=== PATIENT | male | born 1980 | race Caucasian/White ===

== ENCOUNTER 2020-05-28 10:54 | Emergency (ER) | payer OTHER, SELFPAY ==
--- NOTE | ~2020-05-28 | XR_ITS ---
EXAMINATION: XR chest 2V DATE: 05/28/2020 11:28 INDICATION: Left mid back pain with inspiration TECHNIQUE: PA and lateral views of the chest were obtained. COMPARISON: None FINDINGS: Focal wedge-shaped airspace opacity at the left apex. Remainder of the lungs are clear. No pulmonary edema, pleural effusion or pneumothorax. The cardiomediastinal silhouette is normal. Minimal thoracic spondylosis. IMPRESSION: 1. Peripheral wedge-shaped opacity left apex which in the acute setting could represent pneumonia, at electasis or pulmonary infarct and scarring or malignancy if chronic. Correlate clinically and recomm end radiographic follow-up to resolution. Reviewed, dictated and finalized at location B. IMPRESSION: 1. Peripheral wedge-shaped opacity left apex which in the acute setting could r epresent pneumonia, atelectasis or pulmonary infarct and scarring or malignancy if chronic. Correlate clinically and recommend radiographic follow-up to resol ution.
[2020-05-28 11:00] VITALS: BP 129/63; PULSE 102; RESP 18; TEMP 36.5; O2SAT 100
--- NOTE | 2020-05-28 11:15 | ED_ITS ---
HPI - SOB/Dyspnea General Chief Complaint: Upper Respiratory Infection Stated Complaint: back pain/difficulty breathing Time Seen by Provider: 05/28/20 11:15 Source: patient and RN notes reviewed Mode of arrival: ambulatory Limitations: no limitations Related Data Home Medications Medication Instructions Recorded Confirmed No Home Medications 05/28/20 05/28/20 Allergies Allergy/AdvReac Type Severity Reaction Status Date / Time No Known Allergies Allergy Unverified 05/28/20 11:17 Review of Systems Review of Systems: All systems reviewed & are unremarkable except as noted in HPI and below PMFSH Comments At time of signature, agree with nursing past medical, surgical, social and family history. There is no relevant family history pertinent to the presenting complaint Course Course Emergency Course: Patient is aware of diagnosis, understands and agrees to treatment plan. Anticipatory guidance given. Patient agrees to follow-up as di rected and is aware of reasons to seek care at the emergency department. Portions of this record may have been created with voice recognition software Vital Signs Vital signs: Vital Signs Temperature 97.7 F 05/28/20 11:00 Pulse Rate 102 H 05/28/20 11:00 Respiratory Rate 18 05/28/20 11:00 Blood Pressure 129/63 05/28/20 11:00 Pulse Oximetry 100 05/28/20 11:00 Temperature 97.7 F 05/28/20 11:00 Pulse Rate 102 H 05/28/20 11:00 Respiratory Rate 18 05/28/20 11:00 Blood Pressure 129/63 05/28/20 11:00 Pulse Oximetry 100 05/28/20 11:00 Reviewed. Critical Care Time Critical Care Time Critical Care Time: No Discharge Plan Discharge Prescriptions: No Action No Home Medications RF: 0
--- NOTE | 2020-05-28 11:21 | ED.GENADULT ---
HPI - General Adult General Chief complaint: Upper Respiratory Infection Stated complaint: back pain/difficulty breathing Time Seen by Provider: 05/28/20 11:15 Source: patient and RN notes reviewed Mode of arrival: ambulatory Limitations: no limitations History of Present Illness HPI narrative: 39-year-old male presents with concern for left upper back pain that radiates through the left chest. He denies injury or trauma. He reports pain exacerbated with deep breathing, coughing. Reports pain exacerbated with some movements such as bending. MD complaint: Back pain Related Data Allergies Allergy/AdvReac Type Severity Reaction Status Date / Time No Known Allergies Allergy Unverified 05/28/20 11:17 Review of Systems Review of Systems: Narrative: CONSTITUTIONAL: Denies malaise, chills, sweats, or fever. EYES: Denies visual changes, redness, or discharge. ENT: Denies rhinorrhea, congestion, sinus pain, otalgia or sore throat. CARDIOVASCULAR: Denies chest pain, palpitations, or edema. RESPIRATORY: Denies cough. Reports dyspnea. GASTROINTESTINAL: Denies abdominal pain, nausea, vomiting, diarrhea SKIN: Denies bruising, redness MUSCULOSKELETAL: Reports left upper back pain. Denies myalgia. NEUROLOGIC: Denies numbness, weakness. All systems reviewed & are unremarkable except as noted in HPI and below PMFSH Comments At time of signature, agree with nursing past medical, surgical, social and family history. There is no relevant family history pertinent to the presenting complaint Exam Narrative: Exam Narrative: GENERAL: Well-appearing, well-nourished, and in no acute distress. HEAD: Normocephalic, atraumatic. EYES: PERRLA, conjunctivae clear ENT: Mucous membranes moist. NECK: Supple. CHEST: No respiratory distress. Clear to auscultation, diminished breath sounds. No bony deformities, no asymmetry. Speaks in full sentences. HEART: Regular rate and rhythm. No murmur heard. ABDOMEN: Soft, nontender, nondistended, normal active bowel sounds, no palpable masses. MUSCULOSKELETAL: Normal range of motion and strength in all extremities; 5/5 strength with hip flexion and extension, dorsiflexion and extension, knee flexion and extension, plantar flexion and extension. Normal sensation in dermatomal distributions with sensitivity to light touch and pain. No midline back tenderness to palpation. No paraspinal tenderness. Transfers from lying to sitting to standing. SKIN: Warm, dry, no rash. NEURO: Alert and oriented x3. No focal deficits. Cranial nerves II through XII grossly intact PSYCH: Normal mood and affect Course Course Emergency Course: Patient is aware of diagnosis, understands and agrees to treatment plan. Anticipatory guidance given. Patient agrees to follow-up as directed and is aware of reasons to seek care at the emergency department. Portions of this record may have been created with voice recognition software Vital Signs Vital signs: Vital Signs Temperature 97.7 F 05/28/20 11:00 Pulse Rate 102 H 05/28/20 11:00 Respiratory Rate 18 05/28/20 11:00 Blood Pressure 129/63 05/28/20 11:00 Pulse Oximetry 100 05/28/20 11:00 Temperature 97.7 F 05/28/20 11:00 Pulse Rate 102 H 05/28/20 11:00 Respiratory Rate 18 05/28/20 11:00 Blood Pressure 129/63 05/28/20 11:00 Pulse Oximetry 100 05/28/20 11:00 Reviewed. Medical Decision Making MDM Narrative Medical decision making narrative: No risk factors or findings concerning for epidural abscess, diskitis, vertebral osteomyelitis, cord compression, cauda equina, vertebral fracture or bone malignancy, AAA, or pyelonephritis. Patient instructed to consider further imaging and workup through their primary care physician as an outpatient if symptoms persist. Differential Diagnosis Differential Diagnosis: Back injury, pneumonia, pleural effusion, shoulder pain, shoulder injury, pneumothorax Vital Signs Vital Signs: Vital Signs Temperature 97.7 F
== END 2020-05-28 12:00 | disposition home or self-care (01) ==
PROVIDERS: Emergency Provider Nurse Practitioner
DX: R91.8 Other nonspecific abnormal finding of lung field (principal)
CPT/HCPCS: 71046; 99213; G0463

== ENCOUNTER 2021-06-01 16:07 | Emergency (ER) | payer SELFPAY ==
--- NOTE | 2021-06-01 16:12 | ED.MALEGU ---
HPI - Male Genitourinary General Chief complaint: Urogenital-Male Stated complaint: kindney pain Time Seen by Provider: 06/01/21 16:12 Source: patient and RN notes reviewed History of Present Illness HPI Narrative: Patient is a 40-year-old female who presents the urgent care with complaints of left flank pain. Patient states that it started on Sunday and it resolved until Sunday evening. Patient states that he then started having extreme left flank pain radiating to the left groin. Patient also has urinary frequency and urgency. Patient did have an episode of nausea and vomiting over the weekend. Denies of any fevers. Currently denies of any abdominal pain, nausea, vomiting. Patient has not taken anything [id number] for his symptoms. Patient states that today he started to have blood in the urine. No other acute complaints. No acute distress noted. Patient read the plan of care. Some parts of this dictation were generated by voice recognition software and may contain typographical and/or grammatical inaccuracies. Related Data Home Medications Medication Instructions Recorded Confirmed No Home Medications 06/01/21 06/01/21 Allergies Allergy/AdvReac Type Severity Reaction Status Date / Time No Known Allergies Allergy Verified 06/01/21 16:36 Review of Systems Review of Systems: CONSTITUTIONAL: Denies fever, chills, or sweats. EYES: Denies visual changes, redness, or discharge. ENT: Denies rhinorrhea, congestion, sore throat, or otalgia. CARDIOVASCULAR: Denies chest pain, palpitations, or edema. RESPIRATORY: Denies cough or dyspnea. GASTROINTESTINAL: Denies abdominal pain, nausea, vomiting, or diarrhea. GENITOURINARY: Reports of urinary frequency, urgency, hematuria SKIN: Denies rash or itching. MUSCULOSKELETAL: Reports of left flank pain NEUROLOGIC: Denies headache, numbness, or weakness. All other systems reviewed are negative, except as documented in HPI. PMFSH Comments At the time of my signature, I reviewed and agree with the nursing past medical, surgical, social, and family history. There is no relevant family history pertinent to the patient complaint. Exam Narrative: GENERAL: This is a well-nourished, well-developed patient, in no apparent distress. HEAD: normocephalic, atraumatic. EYES: PERRL. Sclera clear/white. Vision is grossly intact. EARS: External ears normal NOSE: External nose normal with no obvious nasal discharge, nares without redness, no rhinorrhea. THROAT: Mucous membranes moist NECK: Neck supple CARDIOVASCULAR: Regular rate and rhythm without murmurs, gallops, or rubs. RESPIRATORY: Clear to auscultation. Breath sounds equal bilaterally. No wheezes, rales, or rhonchi. GASTROINTESTINAL: Abdomen soft, moderate suprapubic tenderness, nondistended. Bowel sounds are active. SKIN: warm, intact with no suspicious lesions or rash, good texture and turgor. NEURO: awake, alert, and oriented to person, place and time. There were no obvious focal neurologic abnormalities. EXTREMITIES: No clubbing, cyanosis, or edema. BACK: Positive left CVA tenderness Course Vital Signs Vital signs: Vital Signs Temperature 98.7 F 06/01/21 16:20 Pulse Rate 73 06/01/21 16:20 Respiratory Rate 14 06/01/21 16:20 Blood Pressure 115/61 06/01/21 16:20 Pulse Oximetry 98 06/01/21 16:20 Temperature 98.7 F 06/01/21 16:20 Pulse Rate 73 06/01/21 16:20 Respiratory Rate 14 06/01/21 16:20 Blood Pressure 115/61 06/01/21 16:20 Pulse Oximetry 98 06/01/21 16:20 Reviewed Transfer Transfered to: [facility] Transportation: Other (Private car) Transfer rationale: Further eval and treatment for possible kidney stone Accepting physician: Dr. Rubalcava MDM - Male Genitourinary MDM Narrative Medical decision making narrative: Reviewed lab results with the patient. He is aware that there is no indicative infection of the urine however there is blood in the urine. Considering patient'
[2021-06-01 16:20] VITALS: BP 115/61; PULSE 73; RESP 14; TEMP 37.1; O2SAT 98
== END 2021-06-01 17:08 | disposition short-term general hospital (02) ==
PROVIDERS: Emergency Provider Nurse Practitioner Family
DX: R10.9 Unspecified abdominal pain (principal); R31.9 Hematuria, unspecified
CPT/HCPCS: 81003; 99212; G0463

== ENCOUNTER 2022-04-02 16:15 | Emergency (ER) | payer OTHER, SELFPAY ==
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
[2022-04-02 16:30] VITALS: BP 110/58; PULSE 84; RESP 16; TEMP 37.7; O2SAT 99
[2022-04-02 16:41] VITALS: BP 110/58; PULSE 84; RESP 16; TEMP 37.7; O2SAT 99
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
[2022-04-02] MEDS: KETOROLAC (*BKC) 60 MG/2 ML VIAL IM (18:22)
== END 2022-04-02 18:42 | disposition home or self-care (01) ==
PROVIDERS: Emergency Provider Nurse Practitioner Family
DX: S92.902A Unspecified fracture of left foot, initial encounter for closed fracture (principal); M25.571 Pain in right ankle and joints of right foot; M25.512 Pain in left shoulder; R07.81 Pleurodynia; M25.522 Pain in left elbow; V29.9XXA Motorcycle rider (driver) (passenger) injured in unspecified traffic accident, initial encounter; F17.210 Nicotine dependence, cigarettes, uncomplicated
CPT/HCPCS: 29515; 71100; 73030; 73080; 73630; 96372; 99214; G0463; J1885

== ENCOUNTER 2022-05-18 16:34 | Emergency (ER) | payer OTHER, SELFPAY ==
--- NOTE | 2022-05-18 16:38 | ED.DENTAL ---
HPI - Dental/Oral General Chief complaint: Dental/Oral Stated complaint: Toothache Time Seen by Provider: 05/18/22 16:38 Source: patient Mode of arrival: ambulatory Limitations: no limitations History of Present Illness HPI Narrative: Mr. Foley is a 41-year-old male patient presenting to the clinic today with complaints of possible dental infection. He reports that he first noticed this 2 days ago. He is concerned that he may have a dental abscess. He denies any fever or chills Related Data Allergies Allergy/AdvReac Type Severity Reaction Status Date / Time lansoprazole [From Prevacid] Allergy Mild Rash Verified 04/19/22 08:58 Review of Systems Review of Systems: Pertinent positives per HPI. Patient denies any fever, chills, rash, headache, visual changes, dizziness, cough, runny nose, sore throat, shortness of breath, chest pain, palpitations, nausea, vomiting, diarrhea, constipation, abdominal pain, or any urinary issues. PMFSH Past Medical History Medical History Anxiety Depression Surgical History Surgical History History of appendectomy Family History Family History Father Asthma Hypertension Mother Diabetes mellitus Sibling Leukemia Social History Social History Smoking packs per day: 1 Smoking cigarettes per day: 20.0 Years smoked: 20 Smoking pack-years: 20.00 Smoking status: Current every day smoker Tobacco type: cigarettes Alcohol intake: never Substance use: never Additional occupation/education comments: [employer] Comments At the time of my signature, I reviewed and agree with the nursing past medical, surgical, social, and family history. There is no relevant family history pertinent to the patient complaint. Exam Narrative: General: Well-developed, well nourished, in no apparent distress Head: Normocephalic, atraumatic Eyes: Pupils equally round and reactive to light bilaterally, EOM intact, sclera and conjunctive clear, no discharge, lids normal Ears: TMs intact and clear, ear canals clear, no drainage, grossly hearing normal. Nose: Nares patent, no discharge, no inflammation, no sinus tenderness. Mouth: Oropharynx without lesions or masses, very poor dentition, MMM. Dental abscess with very mild fluctuance to the right upper gum with pain to tooth number #5. Mild swelling and pain to palpation over the right maxilla just above this tooth Neck: Supple, trachea midline, no enlargement of anterior or posterior cervical nodes, no thyroid masses or goiter palpable. Cardio: Regular rate and rhythm, s1 and s2 normal, no murmur appreciated. Resp: Clear to auscultation bilaterally anteriorly and posteriorly, no rhonchi, rales, wheezing or rubs Course Course Emergency Course: Portions of this record may have been created with voice recognition software. Level of Care: Express Care Visit Vital Signs Vital signs: Vital signs reviewed MDM - Dental/Oral MDM Narrative Medical decision making narrative: At the time of visit patient is resting comfortably on the exam table. I suspect patient has a dental infection/abscess. There is nothing to be drained at this time. I will put in a prescription for his Augmentin. He is to follow-up with his dentist as soon as possible. Supportive measures were discussed and patient voiced understanding of discharge instructions and agrees to treatment plan. Differential Diagnosis Differential diagnosis: Likely gingival abscess, dental caries, toothache, dental abscess and fracture of tooth Discharge Plan Discharge Clinical Impression: Abscess, dental Patient Disposition: Home, Self-Care Condition: Stable Instructions: Antibiotic Form, Dental Abscess (ED) Dato
[2022-05-18 16:42] VITALS: BP 107/55; PULSE 80; RESP 14; TEMP 37.2; O2SAT 98
== END 2022-05-18 17:03 | disposition home or self-care (01) ==
PROVIDERS: Emergency Provider Nurse Practitioner Family
DX: K04.7 Periapical abscess without sinus (principal); F17.210 Nicotine dependence, cigarettes, uncomplicated
CPT/HCPCS: 99213; G0463

== ENCOUNTER 2022-07-18 15:02 | Emergency (ER) | payer OTHER, SELFPAY ==
[2022-07-18 15:30] VITALS: BP 105/64; PULSE 86; RESP 18; TEMP 36.5; O2SAT 100
--- NOTE | 2022-07-18 16:25 | ED.DENTAL ---
HPI - Dental/Oral General Chief complaint: Dental/Oral Stated complaint: Mouth Sore Time Seen by Provider: 07/18/22 16:25 Mode of arrival: ambulatory Limitations: no limitations History of Present Illness HPI Narrative: 41-year-old male presents concern for dental pain and facial swelling. Reports pain and swelling in the roof of his mouth and swelling to the right side of his face. Reports being treated for a dental abscess in April that resolved. He reports he does not have a dentist. MD Complaint: tooth pain Related Data Allergies Allergy/AdvReac Type Severity Reaction Status Date / Time lansoprazole [From Prevacid] Allergy Mild Rash Verified 07/18/22 15:35 Review of Systems Review of Systems: CONSTITUTIONAL: Denies malaise, chills, sweats, or fever. EYES: Denies visual changes ENT: Denies rhinorrhea, congestion, sinus pain, otalgia or sore throat. Reports right upper dental pain, pain in the roof of the mouth, right cheek swelling CARDIOVASCULAR: Denies chest pain, palpitations RESPIRATORY: Denies cough or dyspnea. SKIN: Denies rash or itching. MUSCULOSKELETAL: Denies myalgia. NEUROLOGIC: Denies numbness, weakness, or headache. All systems reviewed & are unremarkable except as noted in HPI and below PMFSH Past Medical History Medical History Anxiety Depression Surgical History Surgical History History of appendectomy Family History Family History Father Asthma Hypertension Mother Diabetes mellitus Sibling Leukemia Social History Social History Smoking packs per day: 1 Smoking cigarettes per day: 20.0 Years smoked: 20 Smoking pack-years: 20.00 Smoking status: Current every day smoker Tobacco type: cigarettes Alcohol intake: never Substance use: never Additional occupation/education comments: [employer] Comments At time of signature, agree with nursing past medical, surgical, social and family history. There is no relevant family history pertinent to the presenting complaint Exam Narrative: GENERAL: Well-appearing, well-nourished, and in no acute distress. HEAD: Normocephalic, atraumatic. EYES: PERRLA, sclera clear ENT: Nares clear, turbinates pink, no rhinorrhea or epistaxis. Mucous membranes moist. TM pearly ribera with sharp light reflex bilaterally; no tragal tenderness. Oropharynx without erythema or lesions. Tonsils not enlarged and without exudate. Missing teeth, broken teeth, caries, small fluctuant abscess noted to roof of the mouth, right cheek swelling noted NECK: Supple. No lymphadenopathy. CHEST: No respiratory distress. Speaks in full sentences. HEART: Regular rate and rhythm. SKIN: Warm, dry, no visible rash. NEURO: Alert and oriented x3. PSYCH: Normal mood and affect Course Course Emergency Course: Discussed with patient the importance of following up with a dentist for further evaluation of his infection, given the repetitive nature and the abscess on the roof of the mouth. Patient is aware of diagnosis, understands and agrees to treatment plan. Anticipatory guidance given. Patient agrees to follow-up as directed and is aware of reasons to seek care at the emergency department. Portions of this record may have been created with voice recognition software Level of Care: Express Care Visit Vital Signs Vital signs: Vital Signs Temperature 97.7 F 07/18/22 15:30 Pulse Rate 86 07/18/22 15:30 Respiratory Rate 18 07/18/22 15:30 Blood Pressure 105/64 07/18/22 15:30 Pulse Oximetry 100 07/18/22 15:30 Oxygen Delivery Room Air 07/18/22 15:30 Temperature 97.7 F 07/18/22 15:30 Pulse Rate 86 07/18/22 15:30 Respiratory Rate 18 07/18/22 15:30 Blood Pressure 105/64 07/18/22 15:30 Pulse Oximetry
== END 2022-07-18 16:42 | disposition home or self-care (01) ==
PROVIDERS: Emergency Provider Nurse Practitioner
DX: K04.7 Periapical abscess without sinus (principal); F32.9 Major depressive disorder, single episode, unspecified; F41.9 Anxiety disorder, unspecified; F17.210 Nicotine dependence, cigarettes, uncomplicated
CPT/HCPCS: 41800; 99213; G0463

== ENCOUNTER 2022-11-29 12:01 | Emergency (ER) | payer OTHER, SELFPAY ==
--- NOTE | ~2022-11-29 | XR_ITS ---
EXAMINATION: XR foot RT min 3V DATE: 11/29/2022 12:31 INDICATION: Right foot injury and pain. TECHNIQUE: 4 views of right foot were obtained. COMPARISON: Right foot radiographs 04/02/2022 FINDINGS: There is mild hallux valgus. No fracture. There is mild osteoarthritis of first metatarsoph alangeal joint. There is an enthesophyte at posterior aspect of calcaneal tuberosity. IMPRESSION: 1. Mild hallux valgus. 2. Mild osteoarthritis of first metatarsophalangeal joint. Reviewed, dictated and finalized at location A.
[2022-11-29 12:07] VITALS: BP 104/55; PULSE 70; RESP 18; TEMP 35.5; O2SAT 99
--- NOTE | 2022-11-29 12:15 | ED.GENADULT ---
HPI - General Adult General Chief complaint: Extremity Injury, Lower Stated complaint: pain in right foot Source: patient and RN notes reviewed History of Present Illness HPI narrative: 42-year-old male presents to urgent care with complaints of right midfoot pain. States 3 weeks ago he donkey-kicked? a tire and his pain started about 2 hours later. Pt was seen at an ER and given Bactrim and steroids for possible infection due to swelling in the foot. Pt had a negative xray at the time. Pt was seen at his PCP's office and had blood work obtained with negative findings of gout and anything else concerning. Pt states the pain has been persistent. Denies any fevers, chills, numbness, or tingling. Pt has been taking ibuprofen with minimal relief. Related Data Home Medications Medication Instructions Recorded Confirmed No Home Medications 11/29/22 11/29/22 Allergies Allergy/AdvReac Type Severity Reaction Status Date / Time lansoprazole [From Prevacid] Allergy Mild Rash Verified 11/29/22 12:23 Review of Systems Review of Systems: Pertinent positives and pertinent negatives per HPI. [facility], [facility] Past Medical History Medical History Anxiety Depression Surgical History Surgical History History of appendectomy Family History Family History Father Asthma Hypertension Mother Diabetes mellitus Sibling Leukemia Social History Social History Smoking packs per day: 1 Smoking cigarettes per day: 20.0 Years smoked: 20 Smoking pack-years: 20.00 Smoking status: Current every day smoker Tobacco type: cigarettes Alcohol intake: never Substance use: never Living arrangements: with family Occupation/Education: occupation Additional occupation/education comments: [employer] Comments At the time of my signature, I reviewed and agree with the nursing past medical, surgical, social, and family history. There is no relevant family history pertinent to the patient complaint. Exam Narrative: GENERAL: This is a well-nourished, well-developed patient, in no apparent distress. HEAD: normocephalic, atraumatic. EYES: Sclera clear/white. Vision is grossly intact. EARS: External ears normal, auditory canals clear and without drainage. Hearing grossly intact. NOSE: External nose normal with no obvious nasal discharge, nares without redness, no rhinorrhea. THROAT: Mucous membranes moist, posterior pharynx clear. NECK: Neck supple, non-tender without lymphadenopathy, masses or thyromegaly. CARDIOVASCULAR: Regular rate RESPIRATORY: No respiratory distress SKIN: warm, intact with no suspicious lesions or rash, good texture and turgor. NEURO: awake, alert, and oriented to person, place and time. There were no obvious focal neurologic abnormalities. EXTREMITIES: Right medial foot tenderness. Course Course Level of Care: Express Care Visit Vital Signs Vital signs: Vital Signs Temperature 96 F L 11/29/22 12:07 Pulse Rate 70 11/29/22 12:07 Respiratory Rate 18 11/29/22 12:07 Blood Pressure 104/55 L 11/29/22 12:07 Pulse Oximetry 99 11/29/22 12:07 Oxygen Delivery Room Air 11/29/22 12:07 Temperature 96 F L 11/29/22 12:07 Pulse Rate 70 11/29/22 12:07 Respiratory Rate 18 11/29/22 12:07 Blood Pressure 104/55 L 11/29/22 12:07 Pulse Oximetry 99 11/29/22 12:07 Oxygen Delivery Room Air 11/29/22 12:07 Reviewed Medical Decision Making MDM Narrative Medical decision making narrative: Follow up with podiatry. Dr. Con[place]pc[place] in [place]. Dr[place] Harden in [place]. Differential Diagnosis Differential Diagnosis: Fracture, osteoarthritis, contusion Vital Signs Vital Signs: Vital Signs Temperature 96 F L 11/29/22 12:07 Pulse Rate 70 05/0
== END 2022-11-29 13:02 | disposition home or self-care (01) ==
PROVIDERS: Emergency Provider Nurse Practitioner Family; PCP Internal Medicine
DX: M19.071 Primary osteoarthritis, right ankle and foot (principal); F17.210 Nicotine dependence, cigarettes, uncomplicated
CPT/HCPCS: 73630; 99213; G0463

== ENCOUNTER 2024-09-05 13:00 | Emergency (ER) | payer OTHER, SELFPAY ==
[2024-09-05 13:05] VITALS: BP 129/71; PULSE 88; RESP 18; TEMP 36.1; O2SAT 99
--- OUTSIDE RECORDS SUMMARY | 2024-09-05 13:05 | XMS_ITS | Clinical Summary ---
Author Organization [facility] [address] Address [address] [place] [address] Phone Care Team Providers Care Machine Operator Helper Name Role Phone Carlos Fonseca MD Primary Care Provider [phone] Allergies Active Allergy Reactions Criticality Noted Date Comments Lansoprazole Itching Reaction: Itching, Medications No known medications Active Problems Problem Noted Date Diagnosed Date Hospital discharge follow-up 01/18/2023 Assessment & Plan (01/18/2023 6:14 PM CDT): Patient admitted to the hospital 01/05/2023 discharge 01/08/2023 diagnosis acute cellulitis right foot. Patient is seen on [id number] follow-up visit he will return to work on 01/26/2023. Still has some tenderness and pain but is significant improvement.scharge Summary Romel Singh DO (Physician) Hospitalists Inpatient Discharge Summary BRIEF OVERVIEW Admitting Provider: Romel Singh DO Discharge Provider: Romel Singh DO Primary Care Physician at Discharge: Carlos Fonseca MD [phone] Admission Date: 01/05/2023 Discharge Date: 01/08/2023 Admission Location: [facility] Problems/Diagnoses: Principal Problem: Cellulitis of right lower extremity Active Problems: Septic arthritis of right foot (HCC) Cigarette nicotine dependence without complication Resolved Problems: No resolved hospital problems. DETAILS OF HOSPITAL STAY Presenting Problem/History of Present Illness: Per Dr. Mahoney: 42yo male presenting with right foot pain and report of MRI showing bone infection. 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 He has had foot pain since mid October when he kicked a tire at work. Shortly, he had foot redness and swelling. Foot xr done on 11/19 at [facility] showed mild soft tissue swelling. He was prescribed 10 days of Bactrim. Later prescribed Keflex on 12/19 which he has not completed. He has no fever or chills. He reports that the foot swelling has actually improved. He has no drainage or skin breakdown. Hospital Course: Patient was monitored in the hospital until with laboratory evaluation also being helpful. He was started on cefepime and vancomycin out of initial concern for septic joint. However, history of longstanding joint pain argues against infectious cause. Moreover, patient's inflamamtory markers with ESR and CRP were benign at 13 and 4.8, respectively, and his WBC's were 9.6 on arrival as well. He does have swelling in the joint. Seen by podiatry on 01/07/23, with suspicion for noninfectious inflammatory process, possibly pseudogout. Recommendation to start prednisone 40 mg and consider stopping IV antibiotics. These were stopped, and the patient was started on PO antibiotics with Keflex and doxycycline and discharged to home. He was walking on his own prior to discharge. Blood cultures have not grown anything since arrival. He will discharge on a steroid taper and recommend to follow up in hospital or clinic if worsening pain, redness, fevers, etc Cellulitis of right lower extremity 01/05/2023 Septic arthritis of right foot 01/05/2023 Cigarette nicotine dependence without complicati on 01/05/2023 Acute pain of left foot 11/24/2022 Assessment & Plan (11/24/2022 1:18 PM CDT): Patient's recently seen in [facility] ER because of right foot pain he estimates his pain started 11/14/2022. History of trauma to the foot. 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 He advised me that his foot was red swollen very tender as of today's date is less swollen redness and tenderness has decreased . Patient's started on prednisone and Bactrim at that time plans at this time check a uric acid refill the Bactrim and prednisone if needed he will run out in a few days. Patient is given a back to work slip for SundayNovember 28.. [age] still uncomfortable and can not stand on the foot I will extend the back to work slip and he so advised.. 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 Gender Identity Not on file Sexual Orientation Not on file Obstetrics History Last Filed Vital Signs Vital Sign Reading Time Taken Comments Blood Pressure 96/58 01/15/2023 1:47 PM CDT Pulse 77 01/15/2023 1:47 PM CDT Temperature 36.3 C (97.3 F) 01/15/2023 1:47 PM CDT Respiratory Rate 18 01/15/2023 1:47 PM CDT Oxygen Saturation 98% 01/15/2023 1:47 PM CDT Inhaled Oxygen Concentration - - Weight 64.4 kg (142 lb) 01/15/2023 1:47 PM CDT Height 180.3 cm (5' 11 ) 01/05/2023 6:54 PM CDT Body Mass Index 19.8 01/05/2023 6:54 PM CDT Plan of Treatment Health Maintenance Due Date Last Done Comments Colon Cancer Screening-Colonoscopy 1978 Depression Screening 1978 Hepatitis C Screening 1978 Hepatitis B Screening 1996 Regular Well Visit/Exam 18-64 1996 Pneumococcal vaccine <65 (2 of 2 - PCV) 06/03/2019 06/03/2018 Covid-19 Vaccine (3 - 2023-2 5 season) 2024 11/24/2020, 11/03/2020 Influenza Vaccine (#1) 2024 8, 06/15/2015 DTaP/Tdap/Td Vaccine (2 - Td or Tdap) 02/24/2028 02/23/2018 HPV Vaccines Aged Out No longer eligi ble based on patient's age to complete this topic Insurance [facility] Address: [address] [address] [facility]/PPO Address: [place] [id number] Advance Directives For more information, please contact: [phone] * Full Code (Latest Code Status on File) Date Activated Date Inactivated Comments 01/05/2023 7:02 PM 01/08/2023 5:25 PM Care Teams Machine Operator Helper Relationship Specialty Start Date End Date Carlos Fonseca MD PCP - General 02/02/11
--- OUTSIDE RECORDS SUMMARY | 2024-09-05 13:05 | XMS_ITS | Clinical Summary ---
Author Organization [facility] Address [address] [place] [address] Phone Care Team Providers Care Meter Changes Records Clerk Name Role Phone Lee Gayle MD Unavailable [phone] Carlos Fonseca MD Primary Care Provider Allergies Active Allergy Reactions Criticality Noted Date Comments Lansoprazole Rash,Itching,Swelling High 04/29/2018 Reaction: Itching, Joint swelling Medications buPROPion SR (WELLBUTRIN SR) 150 MG TABLET SR 12 HRIndications:Cig arette nicotine dependence without complication Take 1 tab by mouth every for 3 days, on day 4 increase to 1 tab in AM and 1 tab in PM daily. 60 Tab 2 8 Active ondansetron (ZOFRAN) 4 MG Tablet Take 1-2 Tablets by mouth every 8 hours as needed for Nausea - 1st line. 10 Tablet 1 Active HYDROcodone-aceta minophen (NORCO) 5-325 MG TabletIndications :Inflammatory arthropathy Take 1 Tablet by mouth every 4 hours as needed for Moderate or more severe pain. 10 Tablet 3 Active Active Problems Problem Noted Date Diagnosed Date Post traumatic stress disorder (PTSD) 07/02/2018 History of posttraumatic stress disorder (PTSD) 06/28/2018 B12 deficiency 06/03/2018 Other hyperlipidemia 06/03/2018 Tobacco abuse 06/03/2018 Adjustment disorder with mixed anxiety and depre ssed mood 06/03/2018 Immunizations Immunization Administration Dates Next Due Influenza Vaccine, Quadrivalent, PF 06/03/2018 Influenza, high-dose, trivalent, PF 06/15/2015 Pneumococcal Vaccine Adult - 23 Valent 8 TDAP Vaccine 02/23/2018 Family History Medical History Relation Name Comments Chronic Obstructive Pulmonary Disease Father Other-comment Maternal Grandfather Repeat ed MRSA Cancer Maternal Grandmother No Known Problems Mother No Known Problems Paternal Grandfather Heart Attack Paternal Grandmother Cancer Sister Relation Name Status Comments Father Alive Maternal Grandfather Maternal Grandmother Mother Alive Paternal Grandfather Paternal Grandmother Sister Social History Tobacco Use Types Packs/Day Years Used Date Smoking Tobacco: Every Day Cigarettes 0.3 20 Smokeless Tobacco: Never Tobacco Cessation:Ready to Q uit: Yes; Counseling Given: Yes Comments:only been smoking 4 cigarettes Alcohol Use Standard Drinks/Week Comments Yes 0 (1 standard drink = 0.6 oz pur e alcohol) Rare PHQ-2 Answer Date Recorded PHQ-2 Score 10 04/14/2019 Sexually Active Control Partners Comments Yes Natural Family Planning Female Sex and Gender Information Value Date Recorded Sex Assigned at Not on file Legal Sex Male 7:10 PM CDT Gender Identity Not on file Sexual Orientation Not on file Occupation Industry Job Start Date Job End Date [employer] Not on file Not on file Not on file Last Filed Vital Signs Vital Sign Reading Time Taken Comments Blood Pressure 111/63 11/19/2022 10:23 AM CDT Pulse 80 11/19/2022 10:23 AM CDT Temperature 37.3 C (99.2 F) 11/19/2022 8:50 AM CDT Respiratory Rate 16 11/19/2022 10:23 AM CDT Oxygen Saturation 98% 11/19/2022 10:23 AM CDT Inhaled Oxygen Concentration - - Weight 70.3 kg (155 lb) 11/19/2022 8:50 AM CDT Height 175.3 cm (5' 9 ) 11/19/2022 8:50 AM CDT Body Mass Index 22.89 11/19/2022 8:50 AM CDT Plan of Treatment Health Maintenance Due Date Last Done Comments Hepatitis C Virus (HCV) Screening 1978 Hepatitis B Immunization (1 of 3 - 19+ 3-dose series) 1997 Pneumococcal Immunization Combined (2 of 2 - PCV) 06/03/2019 06/03/2018 Colonoscopy 2023 Colorectal Cancer Screening 2023 Influenza Immunization (#1) 03/30/202411/2017, 06/15/2015 SARS-COV-2 Immunization (3 - season) 2024 11/24/2020, 11/03/2020 Respiratory Syncytial Virus (RSV) Immunization (Adult) (1 - 1-dose 75+ series) 2053 DTaP/Tdap/Td Immunization Discontinued 02/23/2018 Meningococcal Immunization (ACWY) Aged Out No longer eligible based on patient's age to complete this topic Rotavirus Immunization Aged Out No lo nger eligible based on patient's age to complete this topic Insurance [facility] Care Teams Meter Changes Records Clerk Relationship Specialty Start Date End Date Carlos Fonseca MD [address] [place] [address] PCP - General Internal Medicine 07/24/22 Lee Gayle MD [address] [facility] [address] [place] [id number] General Surgery 07/08/15
--- OUTSIDE RECORDS SUMMARY | 2024-09-05 13:05 | XMS_ITS | Referral Summary ---
Author Organization [facility] [address] Address [address] [place] [address] Phone Care Team Providers Care Regional Loss Prevention Manager Name Role Phone Carlos Fonseca MD Primary Care Provider [phone] Allergies Active Allergy Reactions Criticality Noted Date [...] Care Physician at Discharge: Carlos Fonseca MD [phone] Admission Date: 01/05/2023 Discharge Date: 01/08/2023 Admission Location: [facility] Problems/Diagnoses: Principal Problem: Cellulitis of right lower extremity Active Problems: Septic arthritis of right foot (HCC) Cigarette nicotine dependence without complication Resolved Problems: No resolved hospital problems. DETAILS OF HOSPITAL STAY Presenting Problem/History of Present Illness: Per Dr. Mahoney: 42yo male presenting with right foot pain and report of MRI showing bone infection. 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 He has had foot pain since mid October when he kicked a tire at work. Shortly, he had foot redness and swelling. [facility] soft tissue swelling. He [...] 1:18 PM CDT): Patient's recently seen in [facility] ER because of right foot pain he estimates his pain started 11/14/2022. History of trauma to the foot. 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
--- NOTE | 2024-09-05 13:24 | ED.FEVER ---
HPI - Fever General Chief Complaint: Fever Stated Complaint: Fever/beltline pain Time Seen by Provider: 09/05/24 13:24 Source: patient Mode of arrival: ambulatory Limitations: no limitations History of Present Illness HPI Narrative: 44-year-old male presents with complaint fever, headache, fatigue, nasal congestion starting yesterday. Had to leave work early due to symptoms. Patient needs work note. Denies nausea vomiting diarrhea. All systems reviewed and negative except as noted above. Related Data Home Medications ?Medication ?Instructions ?Recorded ?Confirmed ?Last Taken ?Type metaxalone 800 mg tablet mg 09/05/24 Unknown History methocarbamol 500 mg tablet mg 09/05/24 Unknown History Allergies Allergy/AdvReac Type Severity Reaction Status Date / Time lansoprazole (From Prevacid) Allergy Mild Rash Verified 09/05/24 13:13 Review of Systems Review of Systems: CONSTITUTIONAL: Reports fever, chills, or sweats. reports fatigue. EYES: Denies visual changes, redness, or discharge. ENT: reports rhinorrhea, congestion. Denies sore throat, or otalgia. CARDIOVASCULAR: Denies chest pain, palpitations, or edema. RESPIRATORY: denies cough or dyspnea. GASTROINTESTINAL: Denies abdominal pain, nausea, vomiting, or diarrhea. GENITOURINARY: Denies dysuria or hematuria. SKIN: Denies rash or itching. MUSCULOSKELETAL: Denies back pain, joint pain, or myalgia. NEUROLOGIC: Denies headache, numbness, or weakness. PSYCHIATRIC: Denies anxiety or depression. All other systems reviewed are negative, except as documented in HPI. [facility] Past Medical History Medical History Anxiety Depression Surgical History Surgical History History of appendectomy Family History Family History Father Asthma Hypertension Mother Diabetes mellitus Sibling Leukemia Social History Social History Smoking packs per day: 1 Smoking cigarettes per day: 20.0 Years smoked: 20 Smoking pack-years: 20.00 Smoking status: Current every day smoker Tobacco type: cigarettes Alcohol intake: never Substance use: never Living arrangements: with family Occupation/Education: occupation Additional occupation/education comments: [employer] [facility] Comments At time of signature, agree with nursing past medical, surgical, social and family history. There is no relevant family history pertinent to the presenting complaint. Exam Narrative: GENERAL: This is a well-nourished, well-developed patient, Ill-appearing but no acute distress, patient diaphoretic to hairline base of scalp, slightly pale HEAD: normocephalic, atraumatic. EYES: PERRL. Sclera clear/white. Vision is grossly intact. EARS: External ears normal, auditory canals clear and without drainage, TMs normal without perforation. Hearing grossly intact. NOSE: External nose normal with no obvious nasal discharge, nares without redness, no rhinorrhea. THROAT: Mucous membranes moist, posterior pharynx clear. NECK: Neck supple, non-tender without lymphadenopathy, masses or thyromegaly. CARDIOVASCULAR: Regular rate and rhythm without murmurs, gallops, or rubs. RESPIRATORY: Clear to auscultation. Breath sounds equal bilaterally. No wheezes, rales, or rhonchi. SKIN: warm, Dry, intact with no suspicious lesions or rash, good texture and turgor. NEURO: awake, alert, and oriented to person, place and time. There were no obvious focal neurologic abnormalities. EXTREMITIES: No joint tenderness, effusion, or edema noted. Course Course Level of Care: Express Care Visit Vital Signs Vital signs: Vital Signs Temperature 36.1 C L 09/05/24 13:05 Pulse Rate 88 09/05/24 13:05 Respiratory Rate 18 09/05/24 13:05 Blood Pressure 129/71 09/05/24 13:05 Pulse Oximetry 99 09/05/24 13:05 Oxygen Delivery Room Air 09/05/24 13:05 Temperature 36.1 C L 09/05/24 13:05 Pulse Rate 88 09/05/24 13:05 Respiratory Rate 18 09/05/24 13:05 Blood Pressure 129/71 09/05/24 13:05 Pulse Oximetry 99 09/05/24 13:05 Oxygen Delivery Room Air 09/05/24 13:05 reviewed MDM - Fever MDM Narrative Medical decision making narrative: negative COVID and influenza test. patient is alert, nontoxic. Hemodynamically stable. Recommend [id number] medications to treat viral symptoms. Will follow-up with primary care physician if not improving. Please be advised this is a medical document. It is intended for [id number] communication. It is written in medical language and may contain unfamiliar abbreviations or verbiage. Medical documents are intended to carry relevant information, facts as evident, and the clinical opinion of the practitioner at the time of the encounter. This report may have been done utilizing a voice recognition system. Attempts have been made to correct errors. However, there may be uncorrected grammatical, spelling, and recognition errors present. The file time of this note does not necessarily represent the time of service. Lab Data Labs: Lab Results 09/05/24 Range/Units 13:26 POC Influenza A Ag Negative (Negative) POC Influenza B Ag Negative (Negative) POC SARS CoV-2 Ag Negative (Negative) Discharge Plan Discharge Clinical Impression: Acute viral syndrome Patient Disposition: Home, Self-Care Condition: Stable Instructions: Viral Syndrome (ED) Additional Instructions: your COVID and influenza test were negative today. Your symptoms are viral and may last 10-14 days. Take Tylenol or ibuprofen every 6-8 hours as needed for pain and fever. Drink plenty of water and rest. Follow-up with your primary care physician if symptoms are not improving. For any worsening of your symptoms go to the ER. Patient Language: Montenegrin Prescriptions: No Action methocarbamol 500 mg tablet metaxalone 800 mg tablet Follow-up/Referrals: PHYSICIAN,STORAGE [employer]TER[employer] TESTER [Primary Care Provider] - Stand Alone Forms: Work/School Release IP Time of Disposition: 13:38
[2024-09-05 13:28] LABS: EDCOVIDSCREEN Negative (Negative); EDINFLUASCREEN Negative (Negative); EDINFLUBSCREEN Negative (Negative)
== END 2024-09-05 13:41 | disposition home or self-care (01) ==
PROVIDERS: Emergency Provider Nurse Practitioner Family
DX: B34.9 Viral infection, unspecified (principal); Z20.822 Contact with and (suspected) exposure to COVID-19; F17.210 Nicotine dependence, cigarettes, uncomplicated
CPT/HCPCS: 87426; 87804; 99212; G0463